=== PATIENT | female | born 1970 | race Caucasian/White ===

== ENCOUNTER 2018-01-02 11:49 | Emergency (ER) | payer MEDICAID ==
[2018-01-02 13:52] VITALS: BP 146/82
--- NOTE | 2018-01-02 14:06 | UC ---
Skin Complaint HPI - HPI Summary HPI Summary: Noticed tick on the outer aspect of her right breast this morning was removed by her boyfriend she is concerned as her small mouthparts still left in the wound. Patient believes the tick was attached last night she did not see yesterday afternoon - History of Current Complaint Chief Complaint: UCSkin Time Seen by Provider: 01/02/18 14:00 Stated Complaint: TICK BITE Hx Obtained From: Patient ?: No Onset/Duration: Sudden Onset, Lasting Hours - 12 Skin Exposure Onset/Duration: Hours Ago - 12 Timing: Constant Current Severity: Moderate Pain Intensity: 8 Pain Scale Used: 0-10 Numeric Location: Discrete - right lateral breast Character: Redness Aggravating Factor(s): Nothing Alleviating Factor(s): Nothing Related History: Insect Bite/Sting - Allergy/Home Medications Allergies/Adverse Reactions: Allergies Allergy/AdvReac Type Severity Reaction Status Date / Time No Known Allergies Allergy Verified 01/02/18 13:53 Review of Systems Constitutional: Negative Skin: Other - Redness and bruising on right lateral breast at site of tick attachment Eyes: Negative ENT: Negative Respiratory: Negative Cardiovascular: Negative Gastrointestinal: Negative Genitourinary: Negative Motor: Negative Neurovascular: Negative Musculoskeletal: Negative Neurological: Negative Psychological: Negative Is Patient Immunocompromised?: No All Other Systems Reviewed And Are Negative: Yes PMH/Surg Hx/FS Hx/Imm Hx Previously Healthy: No Endocrine History: Diabetes, Dyslipidemia Cardiovascular History: Hypertension - Surgical History Surgical History: Yes Surgery Procedure, Year, and Place: tubes in ears. hysterectomy. carpal tunnel. breast reduction. GALLBLADDER REMOVAL - Family History Known Family History: Positive: None - Social History Occupation: Employed Full-time Lives: With Family Alcohol Use: Occasionally Substance Use Type: None Smoking Status (MU): Light Every Day Tobacco Smoker Type: Cigarettes Amount Used/How Often: 4 cigarettes daily Household Exposure Type: Cigarettes Physical Exam Triage Information Reviewed: Yes Appearance: Well-Appearing, No Pain Distress, Well-Nourished Vital Signs: Initial Vital Signs Temp 97.2 F 01/02/18 13:48 Pulse 69 01/02/18 13:48 Resp 18 01/02/18 13:48 BP 146/82 01/02/18 13:48 Pulse Ox 99 01/02/18 13:48 Vital Signs Reviewed: Yes Eye Exam: Normal Eyes: Positive: Conjunctiva Clear ENT Exam: Normal ENT: Positive: Normal ENT inspection, Hearing grossly normal. Negative: Nasal congestion, Trismus, Muffled voice, Hoarse voice, Dental tenderness, Sinus tenderness Dental Exam: Normal Neck exam: Normal Neck: Positive: Supple, Nontender, No Lymphadenopathy Respiratory Exam: Normal Respiratory: Positive: Chest non-tender, No respiratory distress, No accessory muscle use Cardiovascular Exam: Normal Cardiovascular: Positive: RRR, No Murmur, Pulses Normal, Brisk Capillary Refill Musculoskeletal Exam: Normal Musculoskeletal: Positive: Strength Intact, ROM Intact, No Edema Neurological Exam: Normal Neurological: Positive: Alert, Muscle Tone Normal Psychological Exam: Normal Skin Exam: Other Skin: Positive: Other - 1 cm diameter area of erythema and bruising from the tick attachment and removal prior to arrival Course/Dx - Course Course Of Treatment: soap and water wash observe for signs and symptoms of Lyme follow with PCP recheck blood pressure with PCP - Diagnoses Provider Diagnoses: Tick exposure, elevated blood pressure hypertension in poor control, nicotine dependence Discharge - Sign-Out/Discharge Documenting (check all that apply): Discharge/Admit/Transfer - Discharge Plan Condition: Stable Disposition: HOME Patient Education Materials: Tick Bite (ED), Hypertension (ED) Referrals: Kirill Hilario PA [Primary Care Provider] - 2 Weeks - Billing Disposition and Condition Condition: STABLE Disposition: HOME
== END 2018-01-02 14:25 | disposition home or self-care (01) ==
LOC: UCCORT 11:49
DX: S20.161A Insect bite (nonvenomous) of breast, right breast, initial encounter (principal); W57.XXXA Bitten or stung by nonvenomous insect and other nonvenomous arthropods, initial encounter; Y93.9 Activity, unspecified; Y92.9 Unspecified place or not applicable; R03.0 Elevated blood-pressure reading, without diagnosis of hypertension; F17.210 Nicotine dependence, cigarettes, uncomplicated
CPT/HCPCS: 99211; G0463

== ENCOUNTER 2018-02-11 15:28 | Emergency (ER) | payer MEDICAID ==
[2018-02-11 16:23] VITALS: BP 152/67
--- NOTE | 2018-02-11 16:59 | UC ---
Hand/Wrist HPI - HPI Summary HPI Summary: Per residential solar consultant: "Left wrist discomfort x 2 wks, no recall of injury. Hx of CVA- affecting the left side." -here w/ her and grandson. sx started shortly after moving things from a storage unit. 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 no trauma, no injury. shooting pains up left forearm. has pain in extensor wrist, ulnar wrist and left forearm and hurts to pronate and supinate. right hand dominant. denies doing anything with left hand or left arm. - History Of Current Complaint Chief Complaint: UCUpperExtremity Stated Complaint: LEFT WRIST PAIN Time Seen by Provider: 02/11/18 16:47 Pain Intensity: 8 - Allergies/Home Medications Allergies/Adverse Reactions: Allergies Allergy/AdvReac Type Severity Reaction Status Date / Time No Known Allergies Allergy Verified 02/11/18 16:11 Home Medications: Home Medications Escitalopram Oxalate [Lexapro 10 mg] 10 mg PO DAILY 02/11/18 [History Confirmed 02/11/18] Ibuprofen TAB* [Advil TAB*] 400 mg PO Q6H PRN 02/11/18 [History Confirmed ] Metoprolol Succinate XL TAB* [Toprol XL TAB*] 200 mg PO BID 02/11/18 [History Confirmed 02/11/18] PMH/Surg Hx/FS Hx/Imm Hx Previously Healthy: Yes Endocrine History: Diabetes, Dyslipidemia Cardiovascular History: Hypertension - Surgical History Surgical History: Yes Surgery Procedure, Year, and Place: tubes in ears. hysterectomy. carpal tunnel. breast reduction. GALLBLADDER REMOVAL - Family History Known Family History: Negative: Diabetes - Social History Alcohol Use: Occasionally Substance Use Type: None Smoking Status (MU): Light Every Day Tobacco Smoker Type: Cigarettes Amount Used/How Often: 1/2 pk daily Length of Time of Smoking/Using Tobacco: 38n yrs Have You Smoked in the Last Year: Yes Household Exposure Type: Cigarettes Review of Systems Constitutional: Negative Skin: Negative Eyes: Negative ENT: Negative Respiratory: Negative Cardiovascular: Negative Gastrointestinal: Negative Genitourinary: Negative Motor: Negative Neurovascular: Negative Musculoskeletal: Other: - see above Neurological: Negative Psychological: Negative Is Patient Immunocompromised?: No All Other Systems Reviewed And Are Negative: Yes Physical Exam Triage Information Reviewed: Yes Appearance: Well-Appearing, No Pain Distress, Well-Nourished Vital Signs: Initial Vital Signs Temp 97.5 F 02/11/18 16:17 Pulse 60 02/11/18 16:17 Resp 20 02/11/18 16:17 BP 152/67 02/11/18 16:17 Pulse Ox 98 02/11/18 16:17 Vital Signs Reviewed: Yes Eye Exam: Normal ENT Exam: Normal Respiratory Exam: Normal Respiratory: Positive: Lungs clear, Normal breath sounds, No respiratory distress, No accessory muscle use Cardiovascular Exam: Normal Cardiovascular: Positive: RRR, Pulses Normal, Murmur:Sys:Grade _?_/ - I (pt aware of murmur) Musculoskeletal: Positive: Other: - slightly tender left extensor and ulnar wrist. no swelling, no bruising. FROm but tendor with extension. tender over left lateral proximal forearm w/ pain at that site upon extension of middle digit against resistence. tender with pronation and supination agianst resistance and w/o resistence. CR brisk. sensation intact. + 2 radial b/l. Neurological Exam: Normal Psychological Exam: Normal Skin Exam: Normal Hand/Wrist Course/Dx - Course Course Of Treatment: no trauma. left lateral epicondylitis and left wrist/ulnar tendonitis. wrist and elbow splints. PT. ice, nsaids for limited course. xrays may be indicated if sx increase or persist but no compelling need at this time w /o trauma, bruising or swelling. they are agreeable. - Differential Dx/Diagnosis Differential Diagnosis/HQI/PQRI: Tendonitis Provider Diagnoses: left lateral epicondylitis, left wrist tendonitis Discharge - Sign-Out/Discharge Documenting (check all that apply): Post-Discharge Follow Up - Discharge Plan Condition: Stable Disposition: HOME Patient Education Materials: Tennis Elbow (ED), Tendinitis (ED) Referrals: Kirill Hilario PA [Primary Care Provider] - 7 Days Additional Instructions: You can take advil 400-600mgs every 8-12 hrs for pain and swelling. Ice with a towel barrier for 20 mins on and off. Rest is very important. We are giving you a wrist splint but you can buy an tennis elbow splint from the store as we don' t have them here. We have given you a prescription for PT. You should follow ip with orthopedics if your symptoms increase or persist. - Billing Disposition and Condition Condition: STABLE Disposition: Home
== END 2018-02-11 17:14 | disposition home or self-care (01) ==
LOC: UCCORT 15:28
DX: M77.12 Lateral epicondylitis, left elbow (principal); M77.9 Enthesopathy, unspecified; I69.90 Unspecified sequelae of unspecified cerebrovascular disease; I10 Essential (primary) hypertension; F17.210 Nicotine dependence, cigarettes, uncomplicated
CPT/HCPCS: 99212; G0463

== ENCOUNTER 2018-10-13 15:10 | Emergency (ER) | payer MEDICAID ==
[2018-10-13 16:14] VITALS: BP 129/51
--- NOTE | 2018-10-13 16:16 | UC ---
Throat Pain/Nasal George HPI - HPI Summary HPI Summary: 47 yo female presents with 2 weeks of sinus pain/pressure/congestion. Over the last 2-3 days has had right ear pain and pressure. She has been taking OTC allergy medication with no relief. Denies fever, chills, sore throat, cough, rash. - History of Current Complaint Chief Complaint: UCGeneralIllness Stated Complaint: SINUS/RIGHT EAR PAIN Time Seen by Provider: 10/13/18 16:16 Hx Obtained From: Patient Onset/Duration: Sudden Onset Severity: Severe Pain Intensity: 9 Pain Scale Used: 0-10 Numeric - Allergies/Home Medications Allergies/Adverse Reactions: Allergies Allergy/AdvReac Type Severity Reaction Status Date / Time No Known Allergies Allergy Verified 10/13/18 16:14 Home Medications: Home Medications Loratadine [Claritin] 10 mg PO DAILY 10/13/18 [History Confirmed 10/13/18] PMH/Surg Hx/FS Hx/Imm Hx Endocrine History: Diabetes, Dyslipidemia Cardiovascular History: Hypertension Psychological History: Anxiety, Depression - Surgical History Surgical History: Yes Surgery Procedure, Year, and Place: tubes in ears. hysterectomy. BILAT carpal tunnel. breast reduction. GALLBLADDER REMOVAL - Family History Known Family History: Positive: None Negative: Diabetes - Social History Occupation: Employed Full-time Lives: With Family Alcohol Use: Occasionally Substance Use Type: None Smoking Status (MU): Light Every Day Tobacco Smoker Type: Cigarettes Amount Used/How Often: 1/2 pk daily Length of Time of Smoking/Using Tobacco: 38n yrs Have You Smoked in the Last Year: Yes Household Exposure Type: Cigarettes Review of Systems All Other Systems Reviewed And Are Negative: Yes Constitutional: Positive: Negative Skin: Positive: Negative Eyes: Positive: Negative ENT: Positive: Ear Ache, Nasal Discharge, Sinus Congestion, Sinus Pain/ Tenderness Respiratory: Positive: Negative Cardiovascular: Positive: Negative Gastrointestinal: Positive: Negative Neurovascular: Positive: Negative Neurological: Positive: Negative Psychological: Positive: Negative Physical Exam - Summary Physical Exam Summary: GENERAL: NAD. WDWN. No pain distress. SKIN: No rashes, sores, lesions, or open wounds. HEENT: Head: AT/NC Eyes: EOM intact. Conjunctiva clear without inflammation or discharge. Ears: Hearing grossly normal. RIGHT TM with mild erythema and bulging. No canal edema or drainage. Nose: Nasal mucosa mildly swollen and erythematous with clear discharge. TTP maxillary sinus. Positive post nasal drip Throat: Posterior oropharynx without exudates, erythema, or tonsillar enlargement. Uvula midline. NECK: Supple. Nontender. No lymphadenopathy. CHEST: CTAB. No r/r/w. No accessory muscle use. Breathing comfortably and in no distress. CV: RRR. Without m/r/g. Pulses intact. NEURO: Alert. PSYCH: Age appropriate behavior. Triage Information Reviewed: Yes Vital Signs: Initial Vital Signs Temp 97.6 F 10/13/18 16:10 Pulse 68 10/13/18 16:10 Resp 16 10/13/18 16:10 BP 129/51 10/13/18 16:10 Pulse Ox 99 10/13/18 16:10 Vital Signs Reviewed: Yes Throat Pain/Nasal Course/Dx - Course Course Of Treatment: Sinusitis. Right otitis media - Differential Dx/Diagnosis Provider Diagnosis: Sinusitis, Right otitis media Discharge - Sign-Out/Discharge Documenting (check all that apply): Patient Departure All imaging exams completed and their final reports reviewed: No Studies - Discharge Plan Condition: Stable Disposition: HOME Prescriptions: Amoxicillin PO (*) [Amoxicillin 875 MG (*)] 875 mg PO BID #14 tab Fluconazole 150 MG TAB* [Diflucan 150 MG TAB*] 150 mg PO ONCE #1 tablet Patient Education Materials: Sinusitis (ED), Ear Infection (ED) Forms: *Work Release Referrals: Kirill Hilario PA [Primary Care Provider] - Additional Instructions: If you develop a fever, shortness of breath, chest pain, new or worsening symptoms - please call your PCP or go to the ED. - Billing Disposition and Condition Condition: STABLE Disposition: Home - Attestation Statements Provider Attestation: Per institutional requirements, I have reviewed the chart, however, I was not consulted specifically or made aware of this patient by the midlevel provider. I did not personally evaluate, interact with , or disposition this patient.
== END 2018-10-13 16:25 | disposition home or self-care (01) ==
LOC: UCCORT 15:10
DX: J32.9 Chronic sinusitis, unspecified (principal); H66.91 Otitis media, unspecified, right ear; I10 Essential (primary) hypertension; F17.210 Nicotine dependence, cigarettes, uncomplicated
CPT/HCPCS: 99212; G0463

== ENCOUNTER 2019-06-24 11:29 | Emergency (ER) | payer BC, OTHER ==
[2019-06-24 12:43] VITALS: BP 126/74
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
== END 2019-06-24 14:52 | disposition home or self-care (01) ==
LOC: UCCORT 11:29
DX: S16.1XXA Strain of muscle, fascia and tendon at neck level, initial encounter (principal); M75.101 Unspecified rotator cuff tear or rupture of right shoulder, not specified as traumatic; F17.210 Nicotine dependence, cigarettes, uncomplicated; V43.92XA Unspecified car occupant injured in collision with other type car in traffic accident, initial encounter; Y92.488 Other paved roadways as the place of occurrence of the external cause
CPT/HCPCS: 99212; G0463

== ENCOUNTER 2022-11-09 01:53 | Observation (INO) ==
[2022-11-09] MEDS ORDERED: Iodixanol (CONTRAST) 320 MG/ML 100 ML SDV IV ONE (02:11)
[2022-11-09 02:25] LABS: ABS Basophils 0.2 10^3/ul (0-0.2); ABS Eosinophils 0.1 10^3/ul (0-0.6); ABS Monocytes 1.1 10^3/ul (0-0.8); ABS Neutrophils 15.4 10^3/ul (1.5-7.7); Eosinophil % 0.6 %; Hematocrit 45 % (35-47); Lymphocyte % 10.7 %; Mean Corpuscular HGB Conc 34 g/dL (31-36); Mean Corpuscular Hemoglobin 28 pg (27-31); Mean Corpuscular Volume 84 fL (80-97); Mean Platelet Volume 8.2 fL (7.4-10.4); Platelet Count 221 10^3/uL (150-450); Red Blood Count 5.34 10^6 /uL (3.70-4.87); Red Cell Distribution Width 14 % (10-15); White Blood Count 18.8 10^3/uL (3.5-10.8)
[2022-11-09 02:36] LABS: INR 1.04 (0.88-1.18)
[2022-11-09 03:01] LABS: Albumin 4.4 g/dL (3.2-5.2); Albumin/Globulin Ratio 2.2 (1-3); Calcium 9.4 mg/dL (8.6-10.3); Creatinine, Serum 0.95 mg/dL (0.51-0.95); Magnesium 1.9 mg/dL (1.9-2.7); Potassium 3.6 mmol/L (3.5-5.0); Total Bilirubin 0.4 mg/dL (0.2-1.0); Total Protein 6.4 g/dL (6.4-8.9); eGFR CKD-EPI 71.6 (>60)
[2022-11-09 03:21] LABS: Urine Appearance Clear; Urine Bilirubin Negative (Negative); Urine Blood 1+ (Negative); Urine Color Yellow; Urine Glucose 3+(>=500 mg/dL) (Negative); Urine Ketones Negative (Negative); Urine Nitrite Negative (Negative); Urine Protein Negative (Negative); Urine Specific Gravity 1.047 (1.002-1.030); Urine Urobilinogen Negative (Negative)
[2022-11-09 03:27] LABS: Urine Bacteria Absent (Absent); Urine Red Blood Cell 1+(3-5/hpf) (Absent); Urine Squamous Epithelial Cell Present (Absent); Urine White Blood Cell Trace(0-5/hpf) (Absent)
[2022-11-09 03:30] LABS: High Sensitivity Troponin 1 Hr 6 pg/mL (<15)
[2022-11-09] MEDS ORDERED: Lidocaine 0.5% SDV 50 ML VIAL INJ ONE (03:56)
[2022-11-09] MEDS ORDERED: NS 0.9% 1000 ml BAG 1,000 ML IV ONE ×2 (04:25→13:31)
[2022-11-09 04:34] LABS: Body Fluid Source Cerebral Spinal
[2022-11-09 04:54] LABS: CSF Glucose 111 mg/dL (40-70)
[2022-11-09] MEDS ORDERED: Vancomycin 1,750 MG in NS 0.9% 500 ml BAG 500 ML IVPB ONE (05:00)
[2022-11-09] MEDS ORDERED: Acyclovir IV 600 MG in NS 0.9% 250 ml 250 ML IVPB ONE (05:00)
[2022-11-09 05:58] LABS: Body Fluid Appearance Clear; Body Fluid Color Colorless; Body Fluid Mono 40 %; Body Fluid Total Cells Counted 10
[2022-11-09 05:59] LABS: Body Fluid WBC 0 /mcL
[2022-11-09 06:00] LABS: CSF Tube # 4
[2022-11-09 08:18] LABS: C Reactive Protein 18.22 mg/L (<8.01)
[2022-11-09] MEDS ORDERED: Dextrose 50% Syringe 50 ml 25 GM/50 ML SYRINGE IV PUSH PRN (09:26)
[2022-11-09 11:08] LABS: Erythrocyte Sed Rate 2 mm/Hr (0-29)
[2022-11-09] MEDS: Insulin GLARGINE 100 un/ml 10 ml VIAL SUBCUT SCH (11:24)
[2022-11-09 16:27] LABS: ABS Basophils 0.1 10^3/ul (0-0.2); ABS Eosinophils 0.1 10^3/ul (0-0.6); ABS Lymphocytes 1.8 10^3/ul (1.0-4.8); ABS Neutrophils 11.1 10^3/ul (1.5-7.7); Eosinophil % 0.5 %; Hematocrit 39 % (35-47); Hemoglobin 12.4 g/dL (12.0-16.0); Lymphocyte % 12.5 %; Mean Corpuscular HGB Conc 32 g/dL (31-36); Mean Corpuscular Hemoglobin 28 pg (27-31); Mean Corpuscular Volume 85 fL (80-97); Mean Platelet Volume 7.8 fL (7.4-10.4); Platelet Count 171 10^3/uL (150-450); Red Cell Distribution Width 14 % (10-15); White Blood Count 14.1 10^3/uL (3.5-10.8)
[2022-11-09 17:27] LABS: Creatinine, Serum 0.66 mg/dL (0.51-0.95); eGFR CKD-EPI 104.8 (>60)
[2022-11-09 17:29] LABS: Potassium 3.5 mmol/L (3.5-5.0)
[2022-11-09] MEDS ORDERED: Enoxaparin 40 MG/0.4 ML SYR SUBCUT ONE (18:44)
[2022-11-10 07:23] LABS: ABS Basophils 0.1 10^3/ul (0-0.2); ABS Eosinophils 0.1 10^3/ul (0-0.6); ABS Lymphocytes 2.1 10^3/ul (1.0-4.8); ABS Neutrophils 9.1 10^3/ul (1.5-7.7); Eosinophil % 0.8 %; Hematocrit 39 % (35-47); Hemoglobin 13.3 g/dL (12.0-16.0); Lymphocyte % 17.1 %; Mean Corpuscular HGB Conc 34 g/dL (31-36); Mean Corpuscular Hemoglobin 29 pg (27-31); Mean Corpuscular Volume 86 fL (80-97); Platelet Count 164 10^3/uL (150-450); Red Blood Count 4.56 10^6 /uL (3.70-4.87); Red Cell Distribution Width 14 % (10-15); White Blood Count 12.3 10^3/uL (3.5-10.8)
[2022-11-10 07:38] LABS: Calcium 8.5 mg/dL (8.6-10.3); Creatinine, Serum 0.54 mg/dL (0.51-0.95); Potassium 3.4 mmol/L (3.5-5.0)
[2022-11-10] MEDS: Insulin GLARGINE 100 un/ml 10 ml VIAL SUBCUT SCH (07:43)
[2022-11-10] MEDS ORDERED: Potassium Chloride LIQUID 20 MEQ/15 ML LIQUID PO ONE (08:26)
[2022-11-10] MEDS ORDERED: Aspirin EC 81 mg TAB.EC (enteric coated) PO SCH (09:00)
[2022-11-10 10:50] VITALS: BP 119/78
[2022-11-10 16:36] LABS: CSF Oligoclonal Bands 0 bands; CSF VDRL Negative (Negative); Oligoclonal Proteins Interpret 0 bands (<2); Serum Oligoclonal Bands 0 bands
[2022-11-11 00:32] LABS: HSV 1 PCR, CSF Negative (Negative); HSV 2 PCR, CSF Negative (Negative)
[2022-11-11 15:07] LABS: B. burgdorferi PCR Negative (Negative); B. garinii/B. afzellii PCR Negative (Negative); Lyme Disease Source CSF
== END 2022-11-10 13:50 | disposition home or self-care (01) ==
LOC: ED 01:53 → EDHOLD 01:53 → MED 20:41
PROVIDERS: ADMIT Internal Medicine; ATTEND Internal Medicine